=== PATIENT | male | born 1995 | race Caucasian/White ===

== ENCOUNTER 2018-02-04 08:59 | Emergency (ER) | payer SELFPAY ==
[2018-02-04 09:07] VITALS: BP 119/69; PULSE 81; RESP 18; TEMP 98.3
--- NOTE | 2018-02-04 09:27 | ED ---
Upper Extremity HPI - General Chief Complaint: Extremity Injury, Upper Stated Complaint: Hand injury Time Seen by Provider: 02/04/18 09:19 Source: patient, RN notes reviewed, old records reviewed Mode of arrival: ambulatory Limitations: no limitations - History of Present Illness Initial Comments: 22-year-old male with right hand pain after punching a door yesterday. Patient states he is an argument fell onto the door of a person. Patient states that he is right-handed. Reports that he may fracture this hand in the past. Denies any peripheral paresthesias. Does report some range of motion of the fingers. Denies any wrist pain or elbow pain. Patient denies any recent fever , chills, shortness of breath, chest pain, back pain, abdominal pain, nausea vomiting, numbness or tingling, dysuria or hematuria, constipation or diarrhea, headaches or visual changes, or any other current symptoms - Related Data Previous Rx's Medication Instructions Recorded Ibuprofen 600 mg PO TID #20 tablet 02/04/18 Allergies Allergy/AdvReac Type Severity Reaction Status Date / Time [place] Allergy Unknown Uncoded 02/04/18 09:12 Review of Systems ROS Statement: Those systems with pertinent positive or pertinent negative responses have been documented in the HPI. ROS Other: All systems not noted in ROS Statement are negative. Past Medical History Additional Past Medical History / Comment(s): chronic nausea, insomnia, back pain, turrets History of Any Multi-Drug Resistant Organisms: None Reported Past Surgical History: No Surgical Hx Reported Past Psychological History: ADD/ADHD, Anxiety Smoking Status: Current every day smoker Past Alcohol Use History: None Reported Past Drug Use History: Marijuana General Exam - General Exam Comments Initial Comments: Well-appearing 22-year-old. Alert and oriented. No distress. Limitations: no limitations General appearance: alert, in no apparent distress Head exam: Present: atraumatic, normocephalic, normal inspection Eye exam: Present: normal appearance, PERRL, EOMI. Absent: scleral icterus, conjunctival injection, periorbital swelling ENT exam: Present: normal exam, mucous membranes moist Respiratory exam: Present: normal lung sounds bilaterally. Absent: respiratory distress, wheezes, rales, rhonchi, stridor Cardiovascular Exam: Present: regular rate, normal rhythm, normal heart sounds. Absent: systolic murmur, diastolic murmur, rubs, gallop, clicks Right Upper Arm exam: Present: normal inspection, full ROM Elbow exam: Present: normal inspection, full ROM Forearm Wrist exam: Present: normal inspection, full ROM Hand Wrist exam: Present: tenderness, swelling (Tenderness and swelling over the fourth and fifth metacarpals.). Absent: normal inspection Neuro motor exam: Present: wrist extension intact, thumb opposition intact, thumb IP flexion intact, thumb adduction intact, fingers 2-5 abduction intact Vascular: Present: normal capillary refill Back exam: Present: normal inspection Course Vital Signs 02/04/18 09:05 Temperature 98.3 F Pulse Rate 81 Respiratory 18 Rate Blood Pressure 119/69 O2 Sat by Pulse 99 Oximetry Medical Decision Making - Medical Decision Making 22-year-old male presents emergency Department chief complaint of right hand pain after punching a door. Patient has tenderness and swelling over the third fourth and fifth metacarpals. Patient is neurovascular intact. Does have some range of motion of the fingers. Patient's x-rays reviewed and shows no evidence of fracture. At this time we'll put the Patient in Marquez wrap and discuss and temperature medicine and ice. Discussed return parameters. Patient understands treatment plan will comply. Return parameters were discussed. Will follow-up with compensation/benefits specialist. - Radiology Data Radiology results: report reviewed No fracture dislocation or symptoms persist follow-up in 7-10 days. Disposition Clinical Impression: Contusion of right hand Disposition: HOME SELF-CARE Condition: Good Instructions: Hand Sprain (ED) Additional Instructions: Patient denies follow-up with primary care provider and compensation/benefits specialist if symptoms continue persist. With Marquez wrap. Take Motrin child for pain. Ice the area as much as possible. Prescriptions: Ibuprofen 600 mg PO TID #20 tablet Is patient prescribed a controlled substance at d/c from ED?: No When asked, does pt state using other controlled substances?: No If prescribed controlled substance>3 days was MAPS reviewed?: No If opioid is for acute pain is fill amount 7 days or less?: No If Rx opioid, was Start Talking consent form obtained?: No Referrals: None,Stated [Primary Care Provider] - 1-2 days Nathanael Abreu DO [Doctor of Osteopathic Medicine] - 1-2 days Time of Disposition: 10:01
--- NOTE | 2018-02-04 09:51 | XR ---
EXAMINATION TYPE: XR hand complete RT DATE OF EXAM: 02/04/2018 COMPARISON: NONE HISTORY: Pain TECHNIQUE: Three views are submitted. FINDINGS: The osseous structures are intact. The joint spaces are preserved and there is no acute fracture or dislocation. IMPRESSION: 1. No definite acute fracture or dislocation if symptoms persist, follow-up study in 7 to 10 days wo uld be suggested
== END 2018-02-04 10:12 | disposition home or self-care (01) ==
LOC: EC 08:59
DX: S60.221A Contusion of right hand, initial encounter (principal); F17.200 Nicotine dependence, unspecified, uncomplicated; Z91.09 Other allergy status, other than to drugs and biological substances; W22.8XXA Striking against or struck by other objects, initial encounter; Y93.89 Activity, other specified
CPT/HCPCS: 99284

== ENCOUNTER 2018-06-22 14:15 | Emergency (ER) | payer OTHER ==
[2018-06-22 14:45] VITALS: RESP 18; TEMP 98.6
[2018-06-22] MEDS ORDERED: KETOROLAC 30 MG/ML 1 ML VIAL IVP STA (15:05)
[2018-06-22] MEDS ORDERED: SODIUM CHLORIDE 0.9% 1,000 ML IV STA ×2 (15:05)
[2018-06-22] MEDS ORDERED: ONDANSETRON 4 MG/2 ML VIAL IVP STA (15:05)
--- NOTE | 2018-06-22 15:06 | ED ---
Nausea/Vomiting/Diarrhea HPI <Dakota Ochoa - Last Filed: 06/22/18 18:35> - General Source: patient, RN notes reviewed, old records reviewed Mode of arrival: ambulatory Limitations: no limitations <Shayy David - Last Filed: 06/23/18 07:44> - General Chief complaint: Nausea/Vomiting/Diarrhea Stated complaint: N V D Time Seen by Provider: 06/22/18 14:51 - History of Present Illness Initial comments: Patient is a 23-year-old male presents raise her in today with episodes of dry heaving, complaining of diarrhea for the past day. Patient presents is had some intermittent fevers for the past 3 days. He states it is not any anything today. Patient states she's had no chest pain or shortness of breath. He denies any change in urination. Family history of Crohn's disease and colitis. Patient states that the pain is in the mid abdomen and the left and right upper quadrants. (Shayy David) - Related Data Previous Rx's Medication Instructions Recorded Ondansetron Odt [Zofran Odt] 4 mg PO Q8HR PRN #12 tab 06/22/18 Allergies Allergy/AdvReac Type Severity Reaction Status Date / Time [place] Allergy Swelling Uncoded 06/22/18 15:26 Review of Systems ROS Other: All systems not noted in ROS Statement are negative. <Dakota Ochoa - Last Filed: 06/22/18 18:35> ROS Other: All systems not noted in ROS Statement are negative. <Shayy David - Last Filed: 06/23/18 07:44> ROS Statement: Those systems with pertinent positive or pertinent negative responses have been documented in the HPI. Past Medical History Past Medical History: Seizure Disorder Additional Past Medical History / Comment(s): chronic nausea, insomnia, back pain, turrets History of Any Multi-Drug Resistant Organisms: None Reported Past Surgical History: No Surgical Hx Reported Past Psychological History: ADD/ADHD, Anxiety, Bipolar Smoking Status: Current every day smoker Past Alcohol Use History: None Reported Past Drug Use History: Marijuana <Shayy David - Last Filed: 06/23/18 07:44> General Exam <Dakota Ochoa - Last Filed: 06/22/18 18:35> Limitations: no limitations General appearance: alert, in no apparent distress Head exam: Present: atraumatic, normocephalic, normal inspection Eye exam: Present: normal appearance ENT exam: Present: normal exam, mucous membranes moist Neck exam: Present: normal inspection. Absent: tenderness, meningismus, lymphadenopathy Respiratory exam: Present: normal lung sounds bilaterally. Absent: respiratory distress, wheezes, rales, rhonchi, stridor Cardiovascular Exam: Present: regular rate, normal rhythm, normal heart sounds. Absent: systolic murmur, diastolic murmur, rubs, gallop, clicks GI/Abdominal exam: Present: soft, tenderness (minimal LLQ and LUQ tenderness), normal bowel sounds. Absent: distended, guarding, rebound, rigid Extremities exam: Present: normal inspection, full ROM, normal capillary refill. Absent: tenderness, pedal edema, joint swelling, calf tenderness Back exam: Present: normal inspection Neurological exam: Present: alert, oriented X3, CN II-XII intact Psychiatric exam: Present: normal affect, normal mood <Shayy David - Last Filed: 06/23/18 07:44> - General Exam Comments Initial Comments: 23-year-old male. Alert and oriented. Patient appears in no significant distress. (Shayy David) Vital Signs 06/22/18 06/22/18 06/22/18 14:42 16:00 17:00 Temperature 98.6 F Pulse Rate 52 L Respiratory 18 Rate Blood Pressure 117/71 114/73 101/64 O2 Sat by Pulse 99 98 97 Oximetry 06/22/18 06/22/18 18:00 18:30 Temperature Pulse Rate 68 Respiratory 18 Rate Blood Pressure 111/66 112/64 O2 Sat by Pulse 99 Oximetry Medical Decision Making - Lab Data Result diagrams: 06/22/18 15:40 06/22/18 15:40 <Dakota Ochoa - Last Filed: 06/22/18 18:35> - Lab Data Result diagrams: 06/22/18 15:40 06/22/18 15:40 - Radiology Data Radiology results: report reviewed <Shayy David - Last Filed: 06/23/18 07:44> - Medical Decision Making Case discussed with surgery on-call Dr. Kumar, regarding CT evidence of jejunal intussusception. This is a normal finding and is safe for discharge and outpatient follow-up. I did reevaluate the patient, abdomen soft nontender nondistended, he is well-appearing, hungry and eager for discharge. (Dakota Ochoa) 23-year-old male presented to the emergency department today with nausea vomiting abdominal pain is Wells and diarrhea episodes for the past few days. He also reports subjective intermittent fever. Patient had IV fluids and the zofran, toradol. Mild leukocytosis noted. Patient's abdomen is soft, no rebound or guarding. With leukocytosis family history of Chrons colitis, I did do a CT abdomen and pelvis with contrast.. CT didn't show evidence of jejunal intussception. I discuss the case with Dr. Ochoa and him discussed the case with Dr. Kumar. Say that it's normal finding, and that hte patient in the safe for discharge. He can follow up with a Dr. Kumar. Will discharge the patient was Zofran he is hungry and ready to go home. (Shayy David) - Lab Data Lab Results 06/22/18 06/22/18 06/22/18 Range/Units 15:40 15:40 15:40 WBC 14.7 H (3.8-10.6) k/uL RBC 5.29 (4.30-5.90) m/uL Hgb 16.0 (13.0-17.5) gm/dL Hct 47.9 (39.0-53.0) % MCV 90.6 (80.0-100.0) fL MCH 30.2 (25.0-35.0) pg MCHC 33.4 (31.0-37.0) g/dL RDW 12.6 (11.5-15.5) % Plt Count 275 (150-450) k/uL Neutrophils % 82 % Lymphocytes % 9 % Monocytes % 7 % Eosinophils % 1 % Basophils % 0 % Neutrophils # 12.1 H (1.3-7.7) k/uL Lymphocytes # 1.3 (1.0-4.8) k/uL Monocytes # 1.1 H (0-1.0) k/uL Eosinophils # 0.1 (0-0.7) k/uL Basophils # 0.0 (0-0.2) k/uL PT 11.0 (9.0-12.0) sec INR 1.1 (<1.2) APTT 25.1 (22.0-30.0) sec Sodium 141 (137-145) mmol/L Potassium 4.1 (3.5-5.1) mmol/L Chloride 106 (98-107) mmol/L Carbon Dioxide 25 (22-30) mmol/L Anion Gap 10 mmol/L BUN 17 (9-20) mg/dL Creatinine 0.88 (0.66-1.25) mg/dL Est GFR (CKD-EPI)AfAm >90 (>60 ml/min/1.73 sqM) Est GFR (CKD-EPI)NonAf >90 (>60 ml/min/1.73 sqM) Glucose 98 (74-99) mg/dL Calcium 9.9 (8.4-10.2) mg/dL Total Bilirubin 1.0 (0.2-1.3) mg/dL AST 16 L (17-59) U/L ALT 18 L (21-72) U/L Alkaline Phosphatase 57 (38-126) U/L Total Protein 7.7 (6.3-8.2) g/dL Albumin 4.5 (3.5-5.0) g/dL Amylase 49 (30-110) U/L Lipase 68 (23-300) U/L Urine Color Urine Appearance (Clear) Urine pH (5.0-8.0) Ur Specific [place] (1.001-1.035) Urine Protein (Negative) Urine Glucose (UA) (Negative) Urine Ketones (Negative) Urine Blood (Negative) Urine Nitrite (Negative) Urine Bilirubin (Negative) Urine Urobilinogen (<2.0) mg/dL Ur Leukocyte Esterase (Negative) 06/22/18 Range/Units 15:40 WBC (3.8-10.6) k/uL RBC (4.30-5.90) m/uL Hgb (13.0-17.5) gm/dL Hct (39.0-53.0) % MCV (80.0-100.0) fL MCH (25.0-35.0) pg MCHC (31.0-37.0) g/dL RDW (11.5-15.5) % Plt Count (150-450) k/uL Neutrophils % % Lymphocytes % % Monocytes % % Eosinophils % % Basophils % % Neutrophils # (1.3-7.7) k/uL Lymphocytes # (1.0-4.8) k/uL Monocytes # (0-1.0) k/uL Eosinophils # (0-0.7) k/uL Basophils # (0-0.2) k/uL PT (9.0-12.0) sec INR (<1.2) APTT (22.0-30.0) sec Sodium (137-145) mmol/L Potassium (3.5-5.1) mmol/L Chloride (98-107) mmol/L Carbon Dioxide (22-30) mmol/L Anion Gap mmol/L BUN (9-20) mg/dL Creatinine (0.66-1.25) mg/dL Est GFR (CKD-EPI)AfAm (>60 ml/min/1.73 sqM) Est GFR (CKD-EPI)NonAf (>60 ml/min/1.73 sqM) Glucose (74-99) mg/dL Calcium (8.4-10.2) mg/dL Total Bilirubin (0.2-1.3) mg/dL AST (17-59) U/L ALT (21-72) U/L Alkaline Phosphatase (38-126) U/L Total Protein (6.3-8.2) g/dL Albumin (3.5-5.0) g/dL Amylase (30-110) U/L Lipase (23-300) U/L Urine Color Yellow Urine Appearance Clear (Clear) Urine pH 6.0 (5.0-8.0) Ur Specific [place] 1.029 (1.001-1.035) Urine Protein Trace H (Negative) Urine Glucose (UA) Negative (Negative) Urine Ketones Trace H (Negative) Urine Blood Negative (Negative) Urine Nitrite Negative (Negative) Urine Bilirubin Negative (Negative) Urine Urobilinogen <2.0 (<2.0) mg/dL Ur Leukocyte Esterase Negative (Negative) - Radiology Data Evidence of a left upper quadrant jejunal intussusception. No intestinal masses noted. Follow-up as recommended. Length of the intussusception is 4 cm. (Shayy David) Disposition <Dakota Ochoa - Last Filed: 06/22/18 18:35> Is patient prescribed a controlled substance at d/c from ED?: No Time of Disposition: 18:29 <Shayy David - Last Filed: 06/23/18 07:44> Clinical Impression: Nausea & vomiting, Diarrhea, Intussusception of jejunum Disposition: HOME SELF-CARE Condition: Good Instructions: Gastroenteritis (ED) Additional Instructions: Patient is advised to rest, remain hydrated. Take nausea medicine as prescribed. Follow-up with PCP and surgeon. Clear liquid diet for the next 1- 2 days. Prescriptions: Ondansetron Odt [Zofran Odt] 4 mg PO Q8HR PRN #12 tab PRN Reason: Nausea Referrals: None,Stated [Primary Care Provider] - 1-2 days Mani Kumar MD [STAFF PHYSICIAN] - 1-2 days Melani Lerma MD [REFERRING] - 1-2 days
--- NOTE | 2018-06-22 16:05 | XR ---
EXAMINATION TYPE: XR KUB DATE OF EXAM: 06/22/2018 COMPARISON: NONE HISTORY: Diarrhea and abdominal pain TECHNIQUE: 2 views upright FINDINGS: There is no sign of intestinal obstruction or pneumoperitoneum. Fecal pattern is normal. Cleo ng bases are clear. There are no pathologic calcifications. IMPRESSION: Nonacute abdomen.
--- NOTE | 2018-06-22 16:06 | XR ---
EXAMINATION TYPE: XR chest 2V DATE OF EXAM: 06/22/2018 COMPARISON: NONE HISTORY: Chest pain TECHNIQUE: Frontal and lateral views of the chest are obtained. FINDINGS: Heart and mediastinum are normal. Lungs are clear. Diaphragm is normal. Bony thorax appear s normal. IMPRESSION: Normal chest
[2018-06-22 16:07] LABS: Basophils % (A) 0 %; Eosinophils # (A) 0.1 k/uL (0-0.7); Eosinophils % (A) 1 %; HCT 47.9 % (39.0-53.0); Lymphocytes # (A) 1.3 k/uL (1.0-4.8); Lymphocytes % (A) 9 %; MCH 30.2 pg (25.0-35.0); MCHC 33.4 g/dL (31.0-37.0); MCV 90.6 fL (80.0-100.0); Mean Platelet Volume 6.8; Monocytes # (A) 1.1 k/uL (0-1.0); Monocytes % (A) 7 %; Neutrophils # (A) 12.1 k/uL (1.3-7.7); Neutrophils % (A) 82 %; Platelet Count 275 k/uL (150-450); RBC 5.29 m/uL (4.30-5.90); RDW 12.6 % (11.5-15.5); WBC 14.7 k/uL (3.8-10.6)
[2018-06-22 16:09] LABS: Appearance,Urine Clear (Clear); Bilirubin,Urine Negative (Negative); Blood,Urine Negative (Negative); Color,Urine Yellow; Glucose,Urine (UA) Negative (Negative); Ketones,Urine Trace (Negative); Leukocyte Esterase,Urine Negative (Negative); Nitrite,Urine Negative (Negative); Protein,Urine Trace (Negative); Specific Gravity,Urine 1.029 (1.001-1.035); Urobilinogen,Urine <2.0 mg/dL (<2.0)
[2018-06-22 16:15] LABS: Albumin 4.5 g/dL (3.5-5.0); Amylase 49 U/L (30-110); Chloride 106 mmol/L (98-107); Glucose 98 mg/dL (74-99); INR 1.1 (<1.2); Partial Thromboplastin Time 25.1 sec (22.0-30.0); Potassium 4.1 mmol/L (3.5-5.1); Sodium 141 mmol/L (137-145); Total Protein 7.7 g/dL (6.3-8.2)
[2018-06-22 16:16] LABS: ALT 18 U/L (21-72); AST 16 U/L (17-59); Alkaline Phosphatase 57 U/L (38-126); Anion Gap 10 mmol/L; Blood Urea Nitrogen 17 mg/dL (9-20); Calcium 9.9 mg/dL (8.4-10.2); Carbon Dioxide 25 mmol/L (22-30); Lipase 68 U/L (23-300)
--- NOTE | 2018-06-22 17:55 | CT ---
EXAMINATION TYPE: CT abdomen pelvis w con DATE OF EXAM: 06/22/2018 COMPARISON: None HISTORY: abdominal pain, nausea, vomiting CT DLP: 579.5 mGycm Automated exposure control for dose reduction was used. TECHNIQUE: Helical acquisition of images was performed from the lung bases through the pelvis. CONTRAST: Performed without Oral Contrast and with IV Contrast, patient injected with 100 mL of Isovue 300. FINDINGS: Lung bases are clear. There is no pleural effusion. Heart size is normal. There is no pericardial eff usion. Stomach appears normal. Liver spleen pancreas gallbladder appear normal. Bile ducts are not di lated. There is no adrenal mass. There is normal contrast opacification of the kidneys. There is no hydronep hrosis. There is no retroperitoneal adenopathy. Ureters are not dilated. Bladder distends smoothly. T here is no inguinal hernia. There is no free fluid in the pelvis. There is no evidence of free air. There is no inguinal hernia or adenopathy. The appendix is partly filled with air and appears normal. There appears to be a localized intussusception within the jejunum in the left upper quadrant. This i s best seen on axial image 25-27. There is no evidence of a bowel obstruction however. The sagittal i mage 82 shows the length of the intussusception is 4 cm. IMPRESSION: THERE IS EVIDENCE OF LEFT UPPER QUADRANT JEJUNAL INTUSSUSCEPTION. No intestinal mass seen. Follow-up is recommended.
[2018-06-22 18:56] VITALS: BP 112/64; PULSE 68
== END 2018-06-22 18:56 | disposition home or self-care (01) ==
LOC: EC 14:15
DX: K56.1 Intussusception (principal); D72.829 Elevated white blood cell count, unspecified; F17.200 Nicotine dependence, unspecified, uncomplicated; Z83.79 Family history of other diseases of the digestive system; Z91.038 Other insect allergy status
CPT/HCPCS: 99285; 96374; 96375; 96361 ×3; 36415; 80053; 82150; 83690; 85025; 85610; 85730; 81003; 71046; 74018; 74177; J2405; J1885; Q9967

== ENCOUNTER 2018-10-28 07:18 | Emergency (ER) | payer OTHER ==
[2018-10-28 07:30] VITALS: BP 115/68; PULSE 76; RESP 18; TEMP 97.9
[2018-10-28] MEDS ORDERED: KETOROLAC 60 MG/2 ML VIAL IM STA (07:50)
--- NOTE | 2018-10-28 08:05 | ED ---
General Adult HPI - General Chief complaint: Upper Respiratory Infection Stated complaint: SOB Time Seen by Provider: 10/28/18 07:25 Source: patient, RN notes reviewed Mode of arrival: ambulatory Limitations: no limitations - History of Present Illness Initial comments: This is a 23-year-old male presents emergency Department states that he woke up this morning had a huge on and then had pain on the right lateral aspect of his ribs. Patient states now it hurts when he moves or takes a deep breath. Patient states he has a cough but he was has a cough patient smokes cigarettes a lot of marijuana. Patient denies any sputum production. Patient denies any fever chills per patient denies being short of breath per patient denies any anterior chest pain. Patient denies abdominal pain. Patient denies any other symptoms at this time. - Related Data Previous Rx's Medication Instructions Recorded Ondansetron Odt [Zofran Odt] 4 mg PO Q8HR PRN #12 tab 06/22/18 Ibuprofen [Motrin] 600 mg PO Q6HR PRN #20 tab 10/28/18 Allergies Allergy/AdvReac Type Severity Reaction Status Date / Time [place] Allergy Swelling Uncoded 10/28/18 07:29 Review of Systems ROS Statement: Those systems with pertinent positive or pertinent negative responses have been documented in the HPI. ROS Other: All systems not noted in ROS Statement are negative. Past Medical History Past Medical History: Seizure Disorder Additional Past Medical History / Comment(s): chronic nausea, insomnia, back pain, turrets History of Any Multi-Drug Resistant Organisms: None Reported Past Surgical History: No Surgical Hx Reported Past Psychological History: ADD/ADHD, Anxiety, Bipolar Smoking Status: Current every day smoker Past Alcohol Use History: None Reported Past Drug Use History: Marijuana General Exam - General Exam Comments Initial Comments: GENERAL: Patient is well-developed and well-nourished. Patient is nontoxic and well- hydrated and is in mild distress. ENT: Neck is soft and supple. No significant lymphadenopathy is noted. Oropharynx is clear. Moist mucous membranes. Neck has full range of motion without eliciting any pain. EYES: The sclera were anicteric and conjunctiva were pink and moist. Extraocular movements were intact and pupils were equal round and reactive to light. Eyelids were unremarkable. PULMONARY: Unlabored respirations. Good breath sounds bilaterally. No audible rales rhonchi or wheezing was noted. CARDIOVASCULAR: Patient is a regular rate and rhythm. Patient has right lateral rib pain. Ribs 4 and 5.. ABDOMEN: Soft and nontender with normal bowel sounds. No palpable organomegaly was noted. There is no palpable pulsatile mass. SKIN: Skin is clear with no lesions or rashes and otherwise unremarkable. NEUROLOGIC: Patient is alert and oriented x3. Cranial nerves II through XII are grossly intact. Motor and sensory are also intact. Normal speech, volume and content. Symmetrical smile. MUSCULOSKELETAL: Normal extremities with adequate strength and full range of motion. No lower extremity swelling or edema. No calf tenderness. LYMPHATICS: No significant lymphadenopathy is noted PSYCHIATRIC: Normal psychiatric evaluation. Limitations: no limitations Course Vital Signs 10/28/18 07:26 Temperature 97.9 F Pulse Rate 76 Respiratory 18 Rate Blood Pressure 115/68 O2 Sat by Pulse 99 Oximetry Medical Decision Making - Medical Decision Making Chest x-ray shows no acute abnormality Toradol helped the patient's pain Disposition Clinical Impression: Intercostal muscle strain Disposition: HOME SELF-CARE Condition: Good Prescriptions: Ibuprofen [Motrin] 600 mg PO Q6HR PRN #20 tab PRN Reason: For pain Is patient prescribed a controlled substance at d/c from ED?: No Referrals: None,Stated [Primary Care Provider] - 1-2 days Time of Disposition: 08:33
--- NOTE | 2018-10-28 08:10 | XR ---
EXAMINATION TYPE: XR chest 2V DATE OF EXAM: 10/28/2018 COMPARISON: Prior chest x-ray 06/22/2018 HISTORY: Shortness of breath and pain TECHNIQUE: Frontal and lateral views of the chest are obtained. FINDINGS: There is no focal air space opacity, pleural effusion, or pneumothorax seen. The cardiac silhouette size is within normal limits. The osseous structures are intact. IMPRESSION: No acute cardiopulmonary process.
== END 2018-10-28 08:39 | disposition home or self-care (01) ==
LOC: EC 07:18
DX: S29.011A Strain of muscle and tendon of front wall of thorax, initial encounter (principal); R05 Cough; F17.210 Nicotine dependence, cigarettes, uncomplicated; Z91.038 Other insect allergy status; X58.XXXA Exposure to other specified factors, initial encounter
CPT/HCPCS: 71046; 99284; 96372; J1885

== ENCOUNTER 2018-11-10 00:31 | Emergency (ER) | payer OTHER ==
[2018-11-10 00:46] VITALS: BP 116/76; PULSE 84; RESP 18; TEMP 98.5
== END 2018-11-10 01:29 ==
LOC: EC 00:31
DX: K08.89 Other specified disorders of teeth and supporting structures (principal); Z53.21 Procedure and treatment not carried out due to patient leaving prior to being seen by health care provider
CPT/HCPCS: 99499

== ENCOUNTER 2019-02-14 13:32 | Emergency (ER) | payer OTHER ==
[2019-02-14 13:59] VITALS: BP 105/56; PULSE 78; RESP 16; TEMP 97.9
[2019-02-14] MEDS ORDERED: IBUPROFEN 800 MG TAB PO STA (15:37)
--- NOTE | 2019-02-14 16:13 | XR ---
EXAMINATION TYPE: XR knee complete RT DATE OF EXAM: 02/14/2019 COMPARISON: NONE HISTORY: Knee injury and pain TECHNIQUE: 3 views FINDINGS: There is knee joint effusion. I see no fracture nor dislocation. Joint spaces are normal. IMPRESSION: Joint effusion. No fracture seen.
--- NOTE | 2019-02-14 17:04 | ED ---
General Adult HPI - General Chief complaint: Extremity Injury, Lower Stated complaint: leg pain Time Seen by Provider: 02/14/19 15:23 Source: patient Mode of arrival: ambulatory Limitations: no limitations - History of Present Illness Initial comments: Patient is a 23-year-old male who presents with a chief complaint of right knee pain. He states it is been going on for about 2 days. 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 He cannot identify any injury or inciting incident. There are no alleviating factors though he states his pain is aggravated with hyperextension or flexion of the knee. He has not tried taking any medications for this issue. He has no other complaints today. - Related Data Previous Rx's Medication Instructions Recorded Ibuprofen [Motrin] 800 mg PO TID #30 tab 02/14/19 Allergies Allergy/AdvReac Type Severity Reaction Status Date / Time MOSQUITO Allergy Swelling Uncoded 02/14/19 13:59 Review of Systems ROS Statement: Those systems with pertinent positive or pertinent negative responses have been documented in the HPI. ROS Other: All systems not noted in ROS Statement are negative. Musculoskeletal: Reports: joint swelling Past Medical History Past Medical History: Seizure Disorder Additional Past Medical History / Comment(s): chronic nausea, insomnia, back pain, turrets History of Any Multi-Drug Resistant Organisms: None Reported Past Surgical History: No Surgical Hx Reported Past Psychological History: ADD/ADHD, Anxiety, Bipolar Smoking Status: Current every day smoker Past Alcohol Use History: None Reported Past Drug Use History: Marijuana General Exam Limitations: no limitations General appearance: alert, in no apparent distress Head exam: Present: atraumatic, normocephalic Eye exam: Present: normal appearance ENT exam: Present: normal exam Neck exam: Present: normal inspection Respiratory exam: Absent: respiratory distress Cardiovascular Exam: Present: regular rate, normal rhythm GI/Abdominal exam: Present: soft. Absent: distended, tenderness Rectal exam: Present: deferred Extremities exam: Present: joint swelling (right knee mild joint effusion) Back exam: Present: normal inspection Neurological exam: Present: alert, oriented X3 Psychiatric exam: Present: normal affect, normal mood Skin exam: Present: warm, dry, intact Course Vital Signs 02/14/19 13:57 Temperature 97.9 F Pulse Rate 78 Respiratory 16 Rate Blood Pressure 105/56 O2 Sat by Pulse 97 Oximetry Medical Decision Making - Medical Decision Making Patient presents with chief complaint of right knee pain. On initial evaluation, vitals are stable, patient is in no acute distress. Given history and physical examination, I believe that the patient has a prepatellar bursitis. Detrusor unremarkable and did not show any evidence of fracture or effusion. At this time, patient stable for discharge with prescriptions for Motrin. He was given a work note states he can return to light duty and gradually increase as tolerated. He is instructed to follow-up with primary care in 1-2 days, return to the ED if symptoms worsen or change. Disposition Clinical Impression: Prepatellar bursitis Disposition: HOME SELF-CARE Condition: Good Instructions (If sedation given, give patient instructions): Knee Pain (ED) Prescriptions: Ibuprofen [Motrin] 800 mg PO TID #30 tab Is patient prescribed a controlled substance at d/c from ED?: No Referrals: None,Stated [Primary Care Provider] - 1-2 days Mandi Gilbert MD [STAFF PHYSICIAN] - 1-2 days
== END 2019-02-14 17:53 | disposition home or self-care (01) ==
LOC: EC 13:32
DX: M70.41 Prepatellar bursitis, right knee (principal); F17.200 Nicotine dependence, unspecified, uncomplicated; Z91.038 Other insect allergy status
CPT/HCPCS: 99283

== ENCOUNTER 2019-07-20 00:56 | Emergency (ER) | payer OTHER ==
[2019-07-20 01:05] VITALS: BP 142/75; PULSE 102; RESP 18; TEMP 98.3
--- NOTE | 2019-07-20 01:08 | ED ---
ENT HPI - General Chief complaint: Dental/Oral Stated complaint: Dental Pain Time Seen by Provider: 07/20/19 01:08 Source: patient Mode of arrival: ambulatory Limitations: no limitations - History of Present Illness Initial comments: Andrea is a 24-year-old male with a history of very poor dentition and multiple dental caries. Patient is presenting to the ER today for evaluation of pain in the left upper gums and concern for abscess. Patient reports that he has multiple dental caries in this area he's experiencing some worsening pain over the past 2-3 days and today noticed a little bit of swelling became concerned he may have a dental abscess which she has experienced in the past. Patient states that he knows he needs to be on antibiotics to have deep dental work so he decided come to the ER for evaluation antibiotics prior to calling the dentist tomorrow to establish follow-up. - Related Data Previous Rx's Medication Instructions Recorded Ibuprofen [Motrin] 800 mg PO TID #30 tab 02/14/19 Ibuprofen [Motrin] 600 mg PO Q6HR #30 tab 07/20/19 Penicillin V Potassium [Pen Vee K] 500 mg PO QID 7 Days #28 tablet 07/20/19 Allergies Allergy/AdvReac Type Severity Reaction Status Date / Time MOSQUITO Allergy Swelling Uncoded 07/20/19 01:05 Review of Systems ROS Statement: Those systems with pertinent positive or pertinent negative responses have been documented in the HPI. ROS Other: All systems not noted in ROS Statement are negative. Past Medical History Past Medical History: Seizure Disorder Additional Past Medical History / Comment(s): chronic nausea, insomnia, back pain, turrets History of Any Multi-Drug Resistant Organisms: None Reported Past Surgical History: No Surgical Hx Reported Past Psychological History: ADD/ADHD, Anxiety, Bipolar, Depression Smoking Status: Current every day smoker Past Alcohol Use History: None Reported Past Drug Use History: Marijuana General Exam - General Exam Comments Initial Comments: Physical Exam GENERAL: Patient is well-developed and well-nourished. Patient is nontoxic and well-hydrated and is in no distress. HENT: Normocephalic, Atraumatic. Poor dentition with multiple dental caries Erythematous gums, no drainable abscess EYES: PERRL, EOMI PULMONARY: Unlabored respirations. CARDIOVASCULAR: RRR Warm and well perfused extremities ABDOMEN: Non-distended SKIN: No rashes or bruising : Deferred NEUROLOGIC: Alert and oriented Normal speech Normal gait MUSCULOSKELETAL: Moving all extremities with no apparent injury PSYCHIATRIC: No SI/HI Limitations: no limitations Course Vital Signs 07/20/19 01:01 Temperature 98.3 F Pulse Rate 102 H Respiratory 18 Rate Blood Pressure 142/75 O2 Sat by Pulse 97 Oximetry Medical Decision Making - Medical Decision Making Patient with poor dentition history of dental infections presenting with dental pain, erythematous gums. Will be started on anti-inflammatories and antibiotics. No signs of significant infection. Advised to follow up with sunitha ro. Return parameters were discussed, patient discharged home in stable condition Disposition Clinical Impression: Dental abscess Disposition: HOME SELF-CARE Condition: Stable Instructions (If sedation given, give patient instructions): Toothache (ED) Additional Instructions: Please follow up with the [facility] dental clinic. [facility] [place] [address]. Phone number for new patients or [phone] for existing patients. [facility]. Must pay for x-rays then services are free. Call for an appoitnment. Prescriptions: Ibuprofen [Motrin] 600 mg PO Q6HR #30 tab Penicillin V Potassium [Pen Vee K] 500 mg PO QID 7 Days #28 tablet Is patient prescribed a controlled substance at d/c from ED?: No Referrals: None,Stated [Primary Care Provider] - 1-2 days
[2019-07-20] MEDS ORDERED: PENICILLIN V POTASSIUM 250 MG TAB PO STA (01:42)
== END 2019-07-20 01:55 | disposition home or self-care (01) ==
LOC: EC 00:56
DX: K04.7 Periapical abscess without sinus (principal); K02.9 Dental caries, unspecified; F17.200 Nicotine dependence, unspecified, uncomplicated; Z91.09 Other allergy status, other than to drugs and biological substances
CPT/HCPCS: 99282

== ENCOUNTER 2020-09-14 18:22 | Emergency (ER) | payer OTHER ==
[2020-09-14 18:40] VITALS: RESP 18
[2020-09-14 19:56] LABS: Appearance,Urine Clear (Clear); Bilirubin,Urine Negative (Negative); Blood,Urine Negative (Negative); Color,Urine Colorless; Glucose,Urine (UA) Negative (Negative); Ketones,Urine Negative (Negative); Leukocyte Esterase,Urine Negative (Negative); Nitrite,Urine Negative (Negative); Protein,Urine Negative (Negative); Specific Gravity,Urine 1.002 (1.001-1.035); Urobilinogen,Urine <2.0 mg/dL (<2.0)
[2020-09-14 20:35] VITALS: BP 118/71; PULSE 64; TEMP 98.4
--- NOTE | 2020-09-14 21:06 | US ---
EXAMINATION TYPE: US groin RT DATE OF EXAM: 09/14/2020 COMPARISON: NONE CLINICAL HISTORY: hernia . Possible hernia per order. Patient feels palpable lump and pain in right g roin. Scanned right groin-slightly midline at patient's area of concern. There appears to be anterior movement with peristalsis when patient performs the valsalva maneuver. P ossible defect seen measuring 4.0 cm in transverse imaging. Hypoechoic area with hyperechoic center and vacular hilum seen within the right groin measuring 1.2 x 0.8 x 0.4 cm. IMPRESSION: There is evidence for a right side inguinal or scrotal type hernia produced with Valsalv a.
--- NOTE | 2020-09-14 21:19 | ED ---
Abdominal Pain HPI - General Chief Complaint: Abdominal Pain Stated Complaint: poss hernia Time Seen by Provider: 09/14/20 19:28 Source: patient Mode of arrival: ambulatory Limitations: no limitations - History of Present Illness Initial Comments: Patient is a 25-year-old male presenting to the emergency Department with complaints of a right-sided hernia with an increase in pain. Patient states he's had this hernia for approximately 8 years. Patient states the last 2 days he's noticed an increase in discomfort. He denies any fevers, no chills. He denies any nausea or vomiting. He denies any abdominal surgeries. 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 He has not seen a surgeon or a doctor for this yet. Patient has no further complaints at this time. - Related Data Previous Rx's Medication Instructions Recorded Ibuprofen [Motrin] 800 mg PO TID #30 tab 02/14/19 Ibuprofen [Motrin] 600 mg PO Q6HR #30 tab 07/20/19 Penicillin V Potassium [Pen Vee K] 500 mg PO QID 7 Days #28 tablet 07/20/19 Allergies Allergy/AdvReac Type Severity Reaction Status Date / Time MOSQUITO Allergy Swelling Uncoded 09/14/20 18:40 Review of Systems ROS Statement: Those systems with pertinent positive or pertinent negative responses have been documented in the HPI. ROS Other: All systems not noted in ROS Statement are negative. Past Medical History Past Medical History: Seizure Disorder Additional Past Medical History / Comment(s): chronic nausea, insomnia, back pain, turrets History of Any Multi-Drug Resistant Organisms: None Reported Past Surgical History: No Surgical Hx Reported Past Psychological History: ADD/ADHD, Anxiety, Bipolar, Depression Smoking Status: Current every day smoker Past Alcohol Use History: None Reported Past Drug Use History: Marijuana General Exam - General Exam Comments Initial Comments: GENERAL: Patient is well-developed and well-nourished. Patient is nontoxic and in no acute distress. HEAD: Atraumatic, normocephalic. EYES: Pupils equal round and reactive to light, extraocular movements intact, sclera anicteric, conjunctiva are normal. Eyelids were unremarkable. ENT: TMs normal, nares patent, oropharynx clear without exudates. Moist mucous membranes. NECK: Normal range of motion, supple without lymphadenopathy or JVD. LUNGS: Unlabored respirations. Breath sounds clear to auscultation bilaterally and equal. No wheezes rales or rhonchi. HEART: Regular rate and rhythm without murmurs, rubs or gallops. ABDOMEN: Patient does have a reducible hernia present in the right inguinal space. There is no significant pain with palpation of this hernia. No other areas of abdominal tenderness. Normoactive bowel sounds. No guarding, no rebound. No masses appreciated. : Normal external exam. MUSCULOSKELETAL: Normal extremities with adequate strength and normal range of motion, no pitting or edema. No clubbing or cyanosis. NEUROLOGICAL: Patient is alert and oriented x 3. Motor and sensory are also intact. Cranial nerves II through XII grossly intact. Symmetrical smile. Normal speech, normal gait. PSYCH: Normal mood, normal affect. SKIN: Warm, Dry, normal turgor, no rashes or lesions noted. Limitations: no limitations Course Vital Signs 09/14/20 09/14/20 18:38 20:33 Temperature 98.0 F 98.4 F Pulse Rate 70 64 Respiratory 18 18 Rate Blood Pressure 120/65 118/71 O2 Sat by Pulse 99 98 Oximetry Medical Decision Making - Medical Decision Making Patient is a 25-year-old male here for a right inguinal hernia as an increase in pain over the past 2 days. He's had this hernia for years. Ultrasound reveals a right-sided inguinal or scrotal type hernia that is produced with a Valsalva maneuver. This hernia is reducible. He is not in any significant pain. Patient will follow up with surgeon as an outpatient. I did give him referral. He is stable for discharge and he is in agreement with this plan of care. Return parameters were discussed with the patient he verbalizes understanding. - Lab Data Lab Results 09/14/20 Range/Units 19:50 Urine Color Colorless Urine Appearance Clear (Clear) Urine pH 7.0 (5.0-8.0) Ur Specific Taft 1.002 (1.001-1.035) Urine Protein Negative (Negative) Urine Glucose (UA) Negative (Negative) Urine Ketones Negative (Negative) Urine Blood Negative (Negative) Urine Nitrite Negative (Negative) Urine Bilirubin Negative (Negative) Urine Urobilinogen <2.0 (<2.0) mg/dL Ur Leukocyte Esterase Negative (Negative) Disposition Clinical Impression: Right inguinal hernia Disposition: HOME SELF-CARE Condition: Stable Instructions (If sedation given, give patient instructions): Inguinal Hernia (ED) Additional Instructions: Please return to the Emergency Department if symptoms worsen or any other concerns. Please follow up with surgeon as discussed. Apply pressure to area when bearing down for a bowel movement, limit heavy lifting. Is patient prescribed a controlled substance at d/c from ED?: No Referrals: None,Stated [Primary Care Provider] - 1-2 days Farida Mejias MD [STAFF PHYSICIAN] - 1-2 days
== END 2020-09-14 21:40 | disposition home or self-care (01) ==
LOC: EC 18:22
DX: K40.90 Unilateral inguinal hernia, without obstruction or gangrene, not specified as recurrent (principal); F17.200 Nicotine dependence, unspecified, uncomplicated; Z91.09 Other allergy status, other than to drugs and biological substances
CPT/HCPCS: 81003; 99284

== ENCOUNTER 2020-10-13 07:38 | Day surgery (SDC) | payer OTHER ==
[2020-10-11 09:51] VITALS: BMI 26.5
--- NOTE | 2020-10-13 07:02 | P.GSHP ---
History of Present Illness H&P Date: 10/13/20 CHIEF COMPLAINT: Inguinal hernia, right. HISTORY OF PRESENT ILLNESS: The patient is a 25-year-old male who presents with a history of swelling and pain along the right groin. He has noted increased swelling including pain of the area. Now he presents for repair of his inguinal hernia. PAST MEDICAL HISTORY: Please see list. PAST SURGICAL HISTORY: Please see list. MEDICATIONS: Please see list. ALLERGIES: Please see list. SOCIAL HISTORY: Please see list. FAMILY HISTORY: No reports of Crohn disease or ulcerative colitis. REVIEW OF ORGAN SYSTEMS: CONSTITUTIONAL: No reports of fevers or chills. No reports of weight loss despite prior attempts. GI: Denies any blood in stools or constipation. PHYSICAL EXAM: VITAL SIGNS: Stable GENERAL: Well-developed pleasant in no acute distress. HEENT: No scleral icterus. Extraocular movements grossly intact. Moist buccal mucosa. NECK: Supple without lymphadenopathy. CHEST: Unlabored respirations. Equal bilateral excursions. CARDIOVASCULAR: Regular rate and rhythm. Distal 2+ pulses. ABDOMEN: Soft, nondistended. No peritoneal signs. Tenderness right lower quadrant MUSCULOSKELETAL: No clubbing, cyanosis, or edema. ASSESSMENT: 1. Inguinal hernia, right initial and symptomatic. PLAN: 1. Recommend proceeding robotic inguinal repair with mesh with possible bilateral approach. 2. Benefits and risks of surgical intervention was discussed including possibility of open technique. 3. DVT prophylaxis. 4. Antibiotic prophylaxis. Past Medical History Past Medical History: Seizure Disorder Additional Past Medical History / Comment(s): insomnia, back pain, turrets. last seizure 2018 does not take medication for this. migraines up to 15 times a month with nausea History of Any Multi-Drug Resistant Organisms: None Reported Past Surgical History: No Surgical Hx Reported Past Anesthesia/Blood Transfusion Reactions: No Reported Reaction Additional Past Anesthesia/Blood Transfusion Reaction / Comment(s): has never anesthesia Smoking Status: Current every day smoker - Past Family History Mother Family Medical History: Cancer Additional Family Medical History / Comment(s): cervical cancer x2 Medications and Allergies Home Medications Medication Instructions Recorded Confirmed Type No Known Home Medications 10/11/20 10/11/20 History Allergies Allergy/AdvReac Type Severity Reaction Status Date / Time MOSQUITO Allergy Swelling Uncoded 10/11/20 09:38
[~2020-10-13 07:38] MED LIST: ACETAMINOPHEN TAB 500 MG TAB PO STA; DEXAMETHASONE SOD PHOSPHATE 4 MG/ML 1 ML VIAL IV ONE; GABAPENTIN 300 MG CAP PO STA; HEPARIN SODIUM,PORCINE 5,000 UNIT/ML 1 ML VIAL SQ PRN; HYDROmorphone 0.5 MG/0.5 ML SYRINGE IVP PRN; LACTATED RINGERS 1,000 ML IV SCH; MELOXICAM 7.5 MG TAB PO STA; ONDANSETRON 4 MG/2 ML VIAL IVP ONE; TAMSULOSIN 0.4 MG CAP.ER.24H PO STA
[2020-10-13] MEDS ORDERED: SUCCINYLCHOLINE CHLORIDE 100 MG/5 ML SYR IV ONE (10:05)
[2020-10-13] MEDS ORDERED: GLYCOPYRROLATE 0.2 MG/ML 2 ML VIAL ONE (10:05)
[2020-10-13] MEDS ORDERED: PROPOFOL 10 MG/ML 20 ML VIAL IV ONE (10:05)
[2020-10-13] MEDS ORDERED: ROCURONIUM 10 MG/ML (5 ML VIAL) IV ONE (10:05)
[2020-10-13] MEDS ORDERED: LIDOCAINE 1% INJ 10MG/ML (20 ML MDV) ONE (10:05)
[2020-10-13] MEDS ORDERED: MIDAZOLAM 2 MG/2 ML VIAL ONE (10:05)
[2020-10-13] MEDS ORDERED: fentaNYL (PF) 50 MCG/ML 2 ML AMP ONE (10:05)
[2020-10-13] MEDS ORDERED: HYDROmorphone (PF) 1 MG/ML ONE (10:05)
[2020-10-13] MEDS ORDERED: NEOSTIGMINE 1 MG/ML 10 ML VIAL ONE (10:05)
[2020-10-13] MEDS ORDERED: LIDOCAINE 1%-EPI 1:100,000 20 ML VIAL SQ ONE (10:10)
[2020-10-13 10:20] LABS: Basophils # (A) 0.1 k/uL (0-0.2); Basophils % (A) 1 %; Eosinophils # (A) 0.3 k/uL (0-0.7); Eosinophils % (A) 3 %; HCT 46.1 % (39.0-53.0); HGB 15.8 gm/dL (13.0-17.5); Lymphocytes # (A) 2.9 k/uL (1.0-4.8); Lymphocytes % (A) 31 %; MCH 31.2 pg (25.0-35.0); MCHC 34.3 g/dL (31.0-37.0); MCV 91.1 fL (80.0-100.0); Mean Platelet Volume 7.6; Monocytes # (A) 0.9 k/uL (0-1.0); Monocytes % (A) 10 %; Neutrophils # (A) 4.9 k/uL (1.3-7.7); Neutrophils % (A) 53 %; Platelet Count 277 k/uL (150-450); RBC 5.06 m/uL (4.30-5.90); WBC 9.3 k/uL (3.8-10.6)
[2020-10-13 10:24] LABS: ALT 13 U/L (4-49); AST 27 U/L (17-59); African American GFR (CKD) >90 (>60 ml/min/1.73 sqM); Albumin 4.7 g/dL (3.5-5.0); Alkaline Phosphatase 56 U/L (38-126); Anion Gap 9 mmol/L; Blood Urea Nitrogen 15 mg/dL (9-20); Calcium 9.7 mg/dL (8.4-10.2); Carbon Dioxide 27 mmol/L (22-30); Chloride 105 mmol/L (98-107); Glucose 110 mg/dL (74-99); Non-African American GFR(CKD) >90 (>60 ml/min/1.73 sqM); Potassium 3.6 mmol/L (3.5-5.1); Sodium 141 mmol/L (137-145); Total Bilirubin 0.8 mg/dL (0.2-1.3); Total Protein 7.7 g/dL (6.3-8.2)
[2020-10-13] MEDS ORDERED: LACTATED RINGERS 1,000 ML IV ONE (11:36)
--- NOTE | 2020-10-13 12:09 | P.OP ---
Date of Procedure: 10/13/20 Description of Procedure: SURGEON: FARIDA MEJIAS MD PREOPERATIVE DIAGNOSES: 1. Initial right inguinal hernia. 2. Tobacco abuse disorder POSTOPERATIVE DIAGNOSES: 1. Initial right inguinal hernia. 2. Tobacco abuse disorder OPERATION: 1. Robotic-assisted da Emiliano Xi laparoscopic right inguinal hernia repair with mesh, 11.[address] ANESTHESIA: General with local anesthetic ESTIMATED BLOOD LOSS: 5 mL. SPECIMENS REMOVED: Right inguinal hernia sac COMPLICATIONS: None. FINDINGS: 1. Large Nyhus type II indirect inguinal hernia, reducible, initial, 3 cm 2. Non-absorbable 2-0 VLOC used INDICATIONS: The patient is a 25-year-old gentleman who presents with history of right groin pain. Now presents for definitive surgical intervention. Laparoscopic versus open and robotic approaches were discussed. Benefits and risks including bleeding, infection, injury to the vas deferens as well as sterility and chronic groin pain were reviewed. Placement of mesh was also described. Informed consent was obtained. DESCRIPTION: In the preoperative area, the patient was marked with indelible marker along the inguinal hernia. The patient was brought to the operating room and initially laid in supine position. The abdomen had been prepped and draped in standard sterile fashion. Ioban draping was also placed. Prior to incision, a timeout protocol was confirmed with surgical team regarding patient's name including procedures to be performed and location along the right groin. Initial positioning for the robotic assisted ports were selected whereby 20 cm superior to the target anatomy, 0 degree 5 mm laparoscopic trocar entry was performed at the left upper quadrant. The abdomen was insufflated to 15 mmHg which he had tolerated well. Diagnostic laparoscopy demonstrated an indirect inguinal hernia along the right groin. Next, along the epigastrium, 8 mm robot trocar was placed. An 8-mm robotic trocar was placed under direct visualization at the right upper quadrant. An 8 mm port was placed at the left upper quadrant. All trocars were positioned between 8 to 10-cm apart from each other. The ShoutNow XI robot was primed, draped, prepared for docking along the right side of the patient. The patient was placed in Trendelenberg position 16-degrees. I then went to the ShoutNow Xi console. The senior office support assistant sosa was at bedside for exchange of the robot arms and equipment. No hernia was identified along the left groin. The right inguinal hernia sac was evaginated whereby the peritoneum was scored using Endo scissors with cautery. The hernia sac was indirect extending to the scrotum. Once completely reduced into the abdominal cavity, the peritoneal sac of the hernia was stripped along an indirect inguinal hernia and a lipoma and sac was resected and then passed off for further pathological analysis. The size of the hernia defect was 3 cm with intraoperative films obtained. Using a 2-0 VLOC, the peritoneal defect of the right inguinal hernia site was closed using a pursestring suture. The defect was found to be completely closed with complete reduction of the right direct inguinal hernia was confirmed. As an onlay, an 11.[address] mesh by [employer] was initially cut in half and entered into the abdominal cavity via the 8 mm trocar. The mesh was tacked to the pelvis using 2-0 VLOC 9-inch length sutures. The robot was undocked from the patient's bedside. I then rescrubbed into the case. Insufflation was released from the abdominal cavity and all instruments were removed from the abdominal cavity. The rest of incisions were reapproximated using 4-0 Monocryl in a running subcuticular fashion. Local anesthetic was placed along the incision including for a right groin block. Incisions were cleansed using dilute hydrogen peroxide. Liquid glue was applied to the skin. At the end of the procedure, the needle, sponge and instrument counts had been verified correct by the surgical nurse practitioner. The patient had tolerated the procedure well and was taken to the postanesthesia care unit in stable condition. Plan - Discharge Summary Discharge Rx Participant: No New Discharge Prescriptions: New Ibuprofen [Motrin] 600 mg PO Q8HR PRN #30 tab PRN Reason: Pain Acetaminophen Tab [Tylenol Tab] 1,000 mg PO Q6HR PRN #30 tablet PRN Reason: Pain Discharge Medication List Acetaminophen Tab [Tylenol Tab] 1,000 mg PO Q6HR PRN #30 tablet 10/13/20 [Rx] Ibuprofen [Motrin] 600 mg PO Q8HR PRN #30 tab 10/13/20 [Rx] Follow up Appointment(s)/Referral(s): Farida Mejias MD [STAFF PHYSICIAN] - 10/18/20 Patient Instructions/Handouts: Laparoscopic Herniorrhaphy (DC), Inguinal Hernia Repair (DC), How to Stop Smoking (DC) Activity/Diet/Wound Care/Special Instructions: AVOID TOBACCO USE FOR COMPLETE RECOVERY No lifting over 10 pounds in 2 weeks until October 27December shower. No bath tub soaks for two weeks until October 27 Diet as tolerated. Use Tylenol and ibuprofen or Aleve scheduled for the next 24-48 hours for best pain relief. Use ice along incisions for today to prevent swelling. Discharge Disposition: HOME SELF-CARE
[2020-10-13] MEDS ORDERED: diphenhydrAMINE 50 MG/ML 1 ML VIAL IVP ONE (12:10)
[2020-10-13] MEDS ORDERED: MIDAZOLAM 2 MG/2 ML VIAL IVP ONE (12:16)
[2020-10-13] MEDS ORDERED: fentaNYL (PF) 50 MCG/ML 2 ML AMP IVP ONE (12:16)
[2020-10-13] MEDS ORDERED: KETOROLAC 15 MG/ML 1 ML VIAL IVP ONE (12:19)
[2020-10-13 12:29] VITALS: TEMP 98.6
[2020-10-13 14:01] VITALS: BP 135/74; PULSE 72; RESP 18
== END 2020-10-13 14:22 | disposition home or self-care (01) ==
LOC: OR 07:38
PROVIDERS: ATTEND Surgery Plastic and Reconstructive Surgery
DX: K40.90 Unilateral inguinal hernia, without obstruction or gangrene, not specified as recurrent (principal); F17.210 Nicotine dependence, cigarettes, uncomplicated; G40.909 Epilepsy, unspecified, not intractable, without status epilepticus; Z80.49 Family history of malignant neoplasm of other genital organs; Z91.09 Other allergy status, other than to drugs and biological substances
CPT/HCPCS: 80053; 85025; 88302; 49650; C1781; J2250; J1200; J1644; J1100; J2710; J0690; J2405; J2001; J3010; J1170; J1885; J0330; J2704

== ENCOUNTER 2021-04-27 13:07 | Emergency (ER) | payer OTHER ==
[2021-04-27 13:29] VITALS: BP 109/62; PULSE 100; RESP 18; TEMP 98.3
--- NOTE | 2021-04-27 14:04 | XR ---
EXAMINATION TYPE: XR chest 2V DATE OF EXAM: 04/27/2021 COMPARISON: Chest x-ray 10/28/2018 HISTORY: Painful breathing, chest pain TECHNIQUE: Frontal and lateral views of the chest are obtained. FINDINGS: There is no focal air space opacity, pleural effusion, or pneumothorax seen. The cardiac silhouette size is within normal limits. The osseous structures are intact, patient is rotated some what to the left. IMPRESSION: No acute cardiopulmonary process.
--- NOTE | 2021-04-27 14:39 | ED ---
General Adult HPI - General Chief complaint: Shortness of Breath Stated complaint: SOB Time Seen by Provider: 04/27/21 14:30 Source: patient, RN notes reviewed Mode of arrival: ambulatory Limitations: no limitations - History of Present Illness Initial comments: Patient is a 26-year-old male that presents to emergency department complaining of pain on breathing. He notes that he just recently started vaping approximately a week ago and all the symptoms started after this. He notes that he is been try to quit smoking so he started tapering as an alternative. He reported that since she started having the burning with breathing he tossed out all of his vape pens and wanted to make sure his lungs looked okay. He is requesting a chest x-ray today. He was in otherwise well-appearing 26-year-old male in no apparent distress or pain. He denied any chest pain shortness of breath headache nausea vomiting diarrhea constipation fever fatigue chills. - Related Data Previous Rx's Medication Instructions Recorded Acetaminophen Tab [Tylenol Tab] 1,000 mg PO Q6HR PRN #30 tablet 10/13/20 Ibuprofen [Motrin] 600 mg PO Q8HR PRN #30 tab 10/13/20 Allergies Allergy/AdvReac Type Severity Reaction Status Date / Time MOSQUITO Allergy Swelling Uncoded 10/13/20 08:16 Review of Systems ROS Statement: Those systems with pertinent positive or pertinent negative responses have been documented in the HPI. ROS Other: All systems not noted in ROS Statement are negative. Past Medical History Past Medical History: Seizure Disorder Additional Past Medical History / Comment(s): insomnia, back pain, turrets. last seizure 2018 does not take medication for this. migraines up to 15 times a month with nausea History of Any Multi-Drug Resistant Organisms: None Reported Past Surgical History: No Surgical Hx Reported Past Anesthesia/Blood Transfusion Reactions: No Reported Reaction Additional Past Anesthesia/Blood Transfusion Reaction / Comment(s): has never anesthesia Past Psychological History: ADD/ADHD, Anxiety, Bipolar, Depression Smoking Status: Current every day smoker, Vaper Past Alcohol Use History: None Reported Past Drug Use History: Marijuana - Past Family History Mother Family Medical History: Cancer Additional Family Medical History / Comment(s): cervical cancer x2 General Exam Limitations: no limitations General appearance: alert, in no apparent distress Head exam: Present: atraumatic, normocephalic, normal inspection Eye exam: Present: normal appearance, PERRL, EOMI. Absent: scleral icterus, conjunctival injection, periorbital swelling Neck exam: Present: normal inspection Respiratory exam: Present: normal lung sounds bilaterally. Absent: respiratory distress, wheezes, rales, rhonchi, stridor Cardiovascular Exam: Present: regular rate, normal rhythm, normal heart sounds. Absent: systolic murmur, diastolic murmur, rubs, gallop, clicks Extremities exam: Present: normal inspection, full ROM, normal capillary refill. Absent: tenderness, pedal edema, joint swelling, calf tenderness Neurological exam: Present: alert, oriented X3 Psychiatric exam: Present: normal affect, normal mood Skin exam: Present: warm, dry, intact, normal color. Absent: rash Course Vital Signs 04/27/21 13:26 Temperature 98.3 F Pulse Rate 100 Respiratory 18 Rate Blood Pressure 109/62 O2 Sat by Pulse 96 Oximetry Medical Decision Making - Medical Decision Making 26-year-old male complaining of burning on breathing after using E cigarettes, wanting a chest x-ray. Chest x-ray ordered. Chest x-ray negative for any acute cardiopulmonary process. Case discussed with Dr. Avila, patient discharge home. - Radiology Data Radiology results: report reviewed, image reviewed Chest x-ray: No acute cardiopulmonary process. Disposition Clinical Impression: Dyspnea, Nicotine dependence due to vaping non-tobacco product Disposition: HOME SELF-CARE Condition: Stable Instructions (If sedation given, give patient instructions): Electronic Cigarettes and Your Health (ED) Additional Instructions: Please return to the Emergency Department if symptoms worsen or any other concerns. I counseled the patient for smoking cessation for greater than 3 minutes Follow-up with primary care in 1-2 days. Is patient prescribed a controlled substance at d/c from ED?: No Referrals: None,Stated [Primary Care Provider] - 1-2 days Time of Disposition: 14:38
== END 2021-04-27 15:00 | disposition home or self-care (01) ==
LOC: EC 13:07
DX: R06.00 Dyspnea, unspecified (principal); F17.290 Nicotine dependence, other tobacco product, uncomplicated; F12.90 Cannabis use, unspecified, uncomplicated; Z79.1 Long term (current) use of non-steroidal anti-inflammatories (NSAID)
CPT/HCPCS: 71046; 99284

== ENCOUNTER 2022-03-28 16:44 | Emergency (ER) | payer OTHER ==
[2022-03-28 17:26] VITALS: BP 132/79; PULSE 74; RESP 16; TEMP 98.3
[2022-03-28] MEDS ORDERED: KETOROLAC 15 MG/ML 1 ML VIAL IM STA (17:56)
[2022-03-28] MEDS ORDERED: methylPREDNISolone SOD SUCCI 125 MG/2 ML VIAL IM ONE (17:57)
[2022-03-28] MEDS ORDERED: LIDOCAINE 5% PATCH TOPICAL SCH (18:15)
--- NOTE | 2022-03-28 18:29 | ED ---
Neck Injury/Pain HPI - General Chief Complaint: Neck Pain/Injury Stated Complaint: Shoulder pain Time Seen by Provider: 03/28/22 17:37 Mode of arrival: ambulatory Limitations: no limitations - History of Present Illness Initial Comments: Patient is a 27-year-old male who presents to the emergency department for the chief complaint of neck pain. Patient states he woke up with the neck pain yesterday. Patient feels that he slept on his neck wrong. Denies injury. Patient endorses left-sided neck pain with tingling into his left shoulder and upper arm. States he took Motrin with no relief. Denies fever, chills, shortness of breath, chest pain, and other concerns. - Related Data Previous Rx's Medication Instructions Recorded Acetaminophen Tab [Tylenol Tab] 1,000 mg PO Q6HR PRN #30 tablet 10/13/20 Ibuprofen [Motrin] 600 mg PO Q8HR PRN #30 tab 10/13/20 Lidocaine 5% Patch [Lidoderm 5% 1 patch TOPICAL DAILY PRN #5 patch 03/28/22 Patch] predniSONE 50 mg PO DAILY #5 tab 03/28/22 Allergies Allergy/AdvReac Type Severity Reaction Status Date / Time MOSQUITO Allergy Swelling Uncoded 03/28/22 17:26 Review of Systems ROS Statement: Those systems with pertinent positive or pertinent negative responses have been documented in the HPI. ROS Other: All systems not noted in ROS Statement are negative. Past Medical History Past Medical History: Seizure Disorder Additional Past Medical History / Comment(s): insomnia, back pain, turrets. last seizure 2018 does not take medication for this. migraines up to 15 times a month with nausea History of Any Multi-Drug Resistant Organisms: None Reported Past Surgical History: No Surgical Hx Reported Past Anesthesia/Blood Transfusion Reactions: No Reported Reaction Additional Past Anesthesia/Blood Transfusion Reaction / Comment(s): has never anesthesia Past Psychological History: ADD/ADHD, Anxiety, Bipolar, Depression Smoking Status: Current every day smoker, Vaper Past Alcohol Use History: None Reported Past Drug Use History: Marijuana - Past Family History Mother Family Medical History: Cancer Additional Family Medical History / Comment(s): cervical cancer x2 General Exam Limitations: no limitations General appearance: alert, in no apparent distress Head exam: Present: atraumatic, normocephalic, normal inspection Neck exam: Present: normal inspection, tenderness (left sternocleidomastoid), fu ll ROM (pain with left lateral rotation). Absent: lymphadenopathy Respiratory exam: Present: normal lung sounds bilaterally. Absent: respiratory distress, wheezes, rales, rhonchi, stridor Cardiovascular Exam: Present: regular rate, normal rhythm, normal heart sounds. Absent: systolic murmur, diastolic murmur, rubs, gallop, clicks GI/Abdominal exam: Present: soft, normal bowel sounds. Absent: distended, tenderness, guarding, rebound, rigid Extremities exam: Present: normal inspection Neurological exam: Present: alert, oriented X3, CN II-XII intact Psychiatric exam: Present: normal affect, normal mood Skin exam: Present: warm, dry, intact, normal color. Absent: rash Course Vital Signs 03/28/22 17:24 Temperature 98.3 F Pulse Rate 74 Respiratory 16 Rate Blood Pressure 132/79 O2 Sat by Pulse 98 Oximetry Medical Decision Making - Medical Decision Making This is a 27-year-old male who presents with left-sided neck pain. Thorough history and examination were performed. There is reproducible pain with tenderness of the left sternocleidomastoid. Full range of motion. Pain with left lateral rotation of the neck. Patient given symptomatic treatment in the emergency Department which improved symptoms. He will be sent home with symptomatic management for musculoskeletal neck pain. Dr. Mcconnell is my attending. Disposition Clinical Impression: Neck pain Disposition: HOME SELF-CARE Condition: Good Instructions (If sedation given, give patient instructions): Acute Neck Pain (ED) Additional Instructions: Please take medication as directed. You will start the prednisone prescription tomorrow. Take Tylenol [id number] as directed for pain. Stretch the neck 3 times a day lightly as we discussed. Follow up with primary care provider in one to 2 days. Return to the emergency department if you experience new, concerning, or worsening symptoms. Prescriptions: Lidocaine 5% Patch [Lidoderm 5% Patch] 1 patch TOPICAL DAILY PRN #5 patch PRN Reason: Pain predniSONE 50 mg PO DAILY #5 tab Is patient prescribed a controlled substance at d/c from ED?: No Referrals: None,Stated [Primary Care Provider] - 1-2 days Time of Disposition: 18:29
== END 2022-03-28 18:45 | disposition home or self-care (01) ==
LOC: EC 16:44
DX: M54.2 Cervicalgia (principal); F17.200 Nicotine dependence, unspecified, uncomplicated; Z91.038 Other insect allergy status
CPT/HCPCS: 99283; 96372; J2930; J1885

== ENCOUNTER 2023-02-20 12:18 | Emergency (ER) | payer OTHER ==
[2023-02-20 12:24] VITALS: RESP 16
[2023-02-20] MEDS ORDERED: ONDANSETRON 4 MG/2 ML VIAL IVP STA (12:35)
[2023-02-20] MEDS ORDERED: SODIUM CHLORIDE 0.9% 1,000 ML IV ONE (12:36)
--- NOTE | 2023-02-20 12:37 | ED ---
General Adult HPI - General Chief complaint: Nausea/Vomiting/Diarrhea Stated complaint: Nausea,Vomitting Time Seen by Provider: 02/20/23 12:20 Source: patient, RN notes reviewed, old records reviewed Mode of arrival: ambulatory Limitations: no limitations - History of Present Illness Initial comments: This is a 28 her old male presents emergency Department stating he cannot stop vomiting over the last 3 days. Patient states she does smoke marijuana daily. Patient states he hasn't smoked much today though. Patient denies any diarrhea. Patient denies abdominal pain. Patient denies any fever chills. Patient states everyone in his family had the same thing but he just can't seem to stop patient denies any back pain. Patient denies any chest pain difficult breathing shortness of breath - Related Data Previous Rx's Medication Instructions Recorded Acetaminophen Tab [Tylenol Tab] 1,000 mg PO Q6HR PRN #30 tablet 10/13/20 Ibuprofen [Motrin] 600 mg PO Q8HR PRN #30 tab 10/13/20 Lidocaine 5% Patch [Lidoderm 5% 1 patch TOPICAL DAILY PRN #5 patch 03/28/22 Patch] predniSONE 50 mg PO DAILY #5 tab 03/28/22 Allergies Allergy/AdvReac Type Severity Reaction Status Date / Time MOSQU[place]O Allergy Swelling Uncoded 03/28/22 17:26 Review of Systems ROS Statement: Those systems with pertinent positive or pertinent negative responses have been documented in the HPI. ROS Other: All systems not noted in ROS Statement are negative. Past Medical History Past Medical History: Seizure Disorder Additional Past Medical History / Comment(s): insomnia, back pain, turrets. last seizure 2018 does not take medication for this. migraines up to 15 times a month with nausea History of Any Multi-Drug Resistant Organisms: None Reported Past Surgical History: No Surgical Hx Reported Past Anesthesia/Blood Transfusion Reactions: No Reported Reaction Additional Past Anesthesia/Blood Transfusion Reaction / Comment(s): has never anesthesia Past Psychological History: ADD/ADHD, Anxiety, Bipolar, Depression Smoking Status: Current every day smoker, Vaper Past Alcohol Use History: None Reported Past Drug Use History: Marijuana - Past Family History Mother Family Medical History: Cancer Additional Family Medical History / Comment(s): cervical cancer x2 General Exam - General Exam Comments Initial Comments: GENERAL: Patient is well-developed and well-nourished. Patient is nontoxic and well- hydrated and is in mild distress. ENT: Neck is soft and supple. No significant lymphadenopathy is noted. Oropharynx is clear. Moist mucous membranes. Neck has full range of motion without e liciting any pain. EYES: The sclera were anicteric and conjunctiva were pink and moist. Extraocular movements were intact and pupils were equal round and reactive to light. Eyelids were unremarkable. PULMONARY: Unlabored respirations. Good breath sounds bilaterally. No audible rales rhonchi or wheezing was noted. CARDIOVASCULAR: There is a regular rate and rhythm without any murmurs gallops or rubs. ABDOMEN: Soft and nontender with normal bowel sounds. SKIN: Skin is clear with no lesions or rashes and otherwise unremarkable. NEUROLOGIC: Patient is alert and oriented x3. Cranial nerves II through XII are grossly intact. Motor and sensory are also intact. Normal speech, volume and content. Symmetrical smile. MUSCULOSKELETAL: Normal extremities with adequate strength and full range of motion. LYMPHATICS: No significant lymphadenopathy is noted PSYCHIATRIC: Normal psychiatric evaluation. Limitations: no limitations Course Vital Signs 02/20/23 12:20 Temperature 99.0 F Pulse Rate 76 Respiratory 16 Rate Blood Pressure 127/73 O2 Sat by Pulse 98 Oximetry Medical Decision Making - Medical Decision Making Was pt. sent in by a medical professional or institution (, PA, PURE PAK MACHINE OPERATOR, urgent care, hospital, or penitentiary...) When possible be specific @ -No Did you speak to anyone other than the patient for history (EMS, parent, family, police, friend...)? What history was obtained from this source @ -No Did you review nursing and triage notes (agree or disagree)? Why? @ -I reviewed and agree with nursing and triage notes Were old charts reviewed (outside hosp., previous admission, EMS record, old EKG, old radiological studies, urgent care reports/EKG's, penitentiary records)? Report findings @ -No old charts were reviewed Differential Diagnosis (chest pain, altered mental status, abdominal pain women, abdominal pain men, vaginal bleeding, weakness, fever, dyspnea, syncope, headache, dizziness, GI bleed, back pain, seizure, CVA, palpatations, mental health, musculoskeletal)? @ -Differential Abdominal Pain Men: Appendicitis, cholecystitis, diverticulosis, ischemic bowel, pancreatitis, hepatitis, UTI, gastroenteritis, AAA, incarcerated hernia, bowel obstruction, constipation, inflammatory bowel, hepatitis, peptic ulcer disease, splenic infarction, perforated viscus, testicular torsion, this is not meant to be an all-inclusive list EKG interpreted by me (3pts min.). @ -As above X-rays interpreted by me (1pt min.). @ -None done CT interpreted by me (1pt min.). @ -None done U/S interpreted by me (1pt. min.). @ -None done What testing was considered but not performed or refused? (CT, X-rays, U/S, labs)? Why? @ -None What meds were considered but not given or refused? Why? @ -None Did you discuss the management of the patient with other professionals (professionals i.e. Dr., PA, PURE PAK MACHINE OPERATOR, lab, RT, psych nurse, social work professor, window installation subcontractor, teacher, chief investment officer, lining caser)? Give summary @ -No Was smoking cessation discussed for >3mins.? @ -No Was critical care preformed (if so, how long)? @ -No Were there social determinants of health that impacted care today? How? (Homelessness, low income, unemployed, alcoholism, drug addiction, transportation, low edu. Level, literacy, decrease access to med. care, [facility], rehab)? @ -No Was there de-escalation of care discussed even if they declined (Discuss DNR or withdrawal of care, Hospice)? DNR status @ -No What co-morbidities impacted this encounter? (DM, HTN, Smoking, COPD, CAD, Cancer, CVA, ARF, Chemo, Hep., AIDS, mental health diagnosis, sleep apnea, morbid obesity)? @ -None Was patient admitted / discharged? Hospital course, mention meds given and route, prescriptions, significant lab abnormalities, going to OR and other pertinent info. @ -Patient's lab work indicated she was hypokalemic and I gave him [facility] 10 emergency department. Patient will follow-up with his primary medical care doctor and will be sent home with Zofran. Patient was given Zofran in the hospital and it helped significantly was also given a liter of fluid. Undiagnosed new problem with uncertain prognosis? @ -No Drug Therapy requiring intensive monitoring for toxicity (Heparin, Nitro, Insulin, Cardizem)? @ -No Were any procedures done? @ -No Diagnosis/symptom? @ -Vomiting Acute, or Chronic, or Acute on Chronic? @ -Acute Uncomplicated (without systemic symptoms) or Complicated (systemic symptoms)? @ -Uncomplicated Side effects of treatment? @ -No Exacerbation, Progression, or Severe Exacerbation? @ -No Poses a threat to life or bodily function? How? (Chest pain, [place], [place], pneumonia, PE, COPD, DKA, ARF, appy, cholecystitis, CVA, Diverticulitis, Homicidal, Suicidal, threat to staff... and all critical care pts) @ -No Diagnosis/symptom? @ -Hypokalemia Acute, or Chronic, or Acute on Chronic? @ -Acute Uncomplicated (without systemic symptoms) or Complicated (systemic symptoms)? @ -Complicated Side effects of treatment? @ -none Exacerbation, Progression, or Severe Exacerbation] @ -no Poses a threat to life or bodily function? @ -no - Lab Data Result diagrams: 02/20/23 12:38 02/20/23 12:38 Lab Results 02/20/23 02/20/23 Range/Units 12:38 12:38 WBC 14.2 H (3.8-10.6) k/uL RBC 5.24 (4.30-5.90) m/uL Hgb 16.9 (13.0-17.5) gm/dL Hct 47.1 (39.0-53.0) % MCV 90.0 (80.0-100.0) fL MCH 32.3 (25.0-35.0) pg MCHC 35.8 (31.0-37.0) g/dL RDW 12.1 (11.5-15.5) % Plt Count 279 (150-450) k/uL MPV 7.5 Neutrophils % 78 % Lymphocytes % 10 % Monocytes % 11 % Eosinophils % 0 % Basophils % 0 % Neutrophils # 11.1 H (1.3-7.7) k/uL Lymphocytes # 1.4 (1.0-4.8) k/uL Monocytes # 1.5 H (0-1.0) k/uL Eosinophils # 0.1 (0-0.7) k/uL Basophils # 0.0 (0-0.2) k/uL Sodium 138 (137-145) mmol/L Potassium 3.2 L (3.5-5.1) mmol/L Chloride 95 L (98-107) mmol/L Carbon Dioxide 29 (22-30) mmol/L Anion Gap 14 mmol/L BUN 18 (9-20) mg/dL Creatinine 0.87 (0.66-1.25) mg/dL Est GFR (CKD-EPI)AfAm >90 (>60 ml/min/1.73 sqM) Est GFR (CKD-EPI)NonAf >90 (>60 ml/min/1.73 sqM) Glucose 125 H (74-99) mg/dL Calcium 9.7 (8.4-10.2) mg/dL Total Bilirubin 0.8 (0.2-1.3) mg/dL AST 24 (17-59) U/L ALT 21 (4-49) U/L Alkaline Phosphatase 55 (38-126) U/L Total Protein 8.3 H (6.3-8.2) g/dL Albumin 4.9 (3.5-5.0) g/dL Disposition Clinical Impression: Acute vomiting, Hypokalemia Disposition: HOME SELF-CARE Instructions (If sedation given, give patient instructions): Acute Nausea and Vomiting (ED) Is patient prescribed a controlled substance at d/c from ED?: No Referrals: None,Stated [Primary Care Provider] - 1-2 days Time of Disposition: 14:20
[2023-02-20 13:08] LABS: Basophils % (A) 0 %; Eosinophils # (A) 0.1 k/uL (0-0.7); Eosinophils % (A) 0 %; HCT 47.1 % (39.0-53.0); HGB 16.9 gm/dL (13.0-17.5); Lymphocytes # (A) 1.4 k/uL (1.0-4.8); Lymphocytes % (A) 10 %; MCH 32.3 pg (25.0-35.0); MCHC 35.8 g/dL (31.0-37.0); Mean Platelet Volume 7.5; Monocytes # (A) 1.5 k/uL (0-1.0); Monocytes % (A) 11 %; Neutrophils # (A) 11.1 k/uL (1.3-7.7); Neutrophils % (A) 78 %; Platelet Count 279 k/uL (150-450); RBC 5.24 m/uL (4.30-5.90); RDW 12.1 % (11.5-15.5); WBC 14.2 k/uL (3.8-10.6)
[2023-02-20 13:19] LABS: ALT 21 U/L (4-49); AST 24 U/L (17-59); African American GFR (CKD) >90 (>60 ml/min/1.73 sqM); Albumin 4.9 g/dL (3.5-5.0); Alkaline Phosphatase 55 U/L (38-126); Anion Gap 14 mmol/L; Blood Urea Nitrogen 18 mg/dL (9-20); Calcium 9.7 mg/dL (8.4-10.2); Carbon Dioxide 29 mmol/L (22-30); Chloride 95 mmol/L (98-107); Glucose 125 mg/dL (74-99); Non-African American GFR(CKD) >90 (>60 ml/min/1.73 sqM); Potassium 3.2 mmol/L (3.5-5.1); Sodium 138 mmol/L (137-145); Total Bilirubin 0.8 mg/dL (0.2-1.3); Total Protein 8.3 g/dL (6.3-8.2)
[2023-02-20] MEDS ORDERED: POTASSIUM CHLORIDE ER 20 MEQ TAB.ER PO STA (13:42)
[2023-02-20] MEDS ORDERED: ONDANSETRON 4 MG ODT STARTER PACK 2 TAB BTL PO STA (14:23)
[2023-02-20 14:30] VITALS: BP 112/65; PULSE 65; TEMP 98.9
== END 2023-02-20 14:34 | disposition home or self-care (01) ==
LOC: EC 12:18
DX: R11.10 Vomiting, unspecified (principal); E87.6 Hypokalemia; F17.290 Nicotine dependence, other tobacco product, uncomplicated; F12.90 Cannabis use, unspecified, uncomplicated; Z88.8 Allergy status to other drugs, medicaments and biological substances; Z86.59 Personal history of other mental and behavioral disorders
CPT/HCPCS: 36415; 80053; 85025; 99284; 96374; 96361; J2405; S0119

== ENCOUNTER 2024-07-02 21:58 | Emergency (ER) | payer SELFPAY ==
[2024-07-02 22:07] VITALS: RESP 18; TEMP 98.5
--- NOTE | 2024-07-02 22:28 | ED ---
Lower Extremity Injury HPI - General Chief Complaint: Extremity Injury, Lower Stated Complaint: R Knee Pain Time Seen by Provider: 07/02/24 22:25 Source: patient, RN notes reviewed Mode of arrival: ambulatory Limitations: no limitations - History of Present Illness Initial Comments: 29-year-old male presenting to the ER chief complaint of right knee pain x 1 week. Patient states the pain is anteriorolateral and worse with weightbearing. He believes he "tore a meniscus" as he states he tore his meniscus 5 years ago where orthopedics recommended surgery but patient declined as he states he did not have the money for at the time. Reports his knee healed on its own, however states he was working on floors last month and did not use kneepads which he believes is what caused his knee injury. States over the past week his right knee has become more swollen and painful. - Related Data Previous Rx's Medication Instructions Recorded Acetaminophen Tab [Tylenol Tab] 1,000 mg PO Q6HR PRN #30 tablet 10/13/20 Ibuprofen [Motrin] 600 mg PO Q8HR PRN #30 tab 10/13/20 Lidocaine 5% Patch [Lidoderm 5% 1 patch TOPICAL DAILY PRN #5 patch 03/28/22 Patch] predniSONE 50 mg PO DAILY #5 tab 03/28/22 Allergies Allergy/AdvReac Type Severity Reaction Status Date / Time MOSQU[place]O Allergy Swelling Uncoded 07/02/24 22:07 Review of Systems ROS Statement: Those systems with pertinent positive or pertinent negative responses have been documented in the HPI. ROS Other: All systems not noted in ROS Statement are negative. Past Medical History Past Medical History: Seizure Disorder Additional Past Medical History / Comment(s): insomnia, back pain, turrets. last seizure 2018 does not take medication for this. migraines up to 15 times a month with nausea History of Any Multi-Drug Resistant Organisms: None Reported Past Surgical History: Hernia Repair Past Anesthesia/Blood Transfusion Reactions: No Reported Reaction Additional Past Anesthesia/Blood Transfusion Reaction / Comment(s): has never anesthesia Past Psychological History: ADD/ADHD, Anxiety, Bipolar, Depression Smoking Status: Current every day smoker, Vaper Past Alcohol Use History: Occasional Past Drug Use History: Marijuana - Past Family History Mother Family Medical History: Cancer Additional Family Medical History / Comment(s): cervical cancer x2 General Exam Limitations: no limitations General appearance: alert, in no apparent distress Head exam: Present: atraumatic, normocephalic, normal inspection Right Upper Leg exam: Present: normal inspection, full ROM. Absent: tenderness, swelling Knee exam: Present: normal inspection, full ROM (Pain with flexion), tenderness (Mild anterior tenderness to palpation). Absent: swelling, abrasion, laceration, posterior draw sign, pain/laxity with valgus, pain/laxity with varus (Negative Abdi's) Lower Leg exam: Present: normal inspection, full ROM. Absent: tenderness, swelling Ankle exam: Present: normal inspection, full ROM. Absent: tenderness, swelling Foot/Toe exam: Present: normal inspection, full ROM. Absent: tenderness, swelling Neurovascular tendon exam: Present: no vascular compromise. Absent: pulse deficit, abnormal cap refill, sensory deficit Neurological exam: Present: alert, oriented X3 Psychiatric exam: Present: normal affect, normal mood Skin exam: Present: warm, dry, intact, normal color. Absent: rash Course Vital Signs 07/02/24 07/03/24 22:06 00:11 Temperature 98.5 F Pulse Rate 93 82 Respiratory 18 18 Rate Blood Pressure 120/70 99/65 O2 Sat by Pulse 100 98 Oximetry Medical Decision Making - Medical Decision Making Was pt. sent in by a medical professional or institution (, PA, PRACTICE ADMINISTRATOR, urgent care, hospital, or fdc...) When possible be specific @ -No Did you speak to anyone other than the patient for history (EMS, parent, family, police, friend...)? What history was obtained from this source @ -No Did you review nursing and triage notes (agree or disagree)? Why? @ -I reviewed and agree with nursing and triage notes Were old charts reviewed (outside hosp., previous admission, EMS record, old EKG, old radiological studies, urgent care reports/EKG's, fdc records)? Report findings @ -No old charts were reviewed Differential Diagnosis (chest pain, altered mental status, abdominal pain women, abdominal pain men, vaginal bleeding, weakness, fever, dyspnea, syncope, headache, dizziness, GI bleed, back pain, seizure, CVA, palpatations, mental health, musculoskeletal)? @ -Differential Musculoskeletal Muscular strain, contusion, ligament sprain, fracture, arthritis, septic arthritis, bursitis, cellulitis, muscle spasm, nerve compression, DVT, arterial occlusion, herpes zoster, electrolyte abnormality, tumor.... This is not meant to be in all inclusive list EKG interpreted by me (3pts min.). @ -None X-rays interpreted by me (1pt min.). @ -X-ray right knee reveals no acute process CT interpreted by me (1pt min.). @ -None done U/S interpreted by me (1pt. min.). @ -None done What testing was considered but not performed or refused? (CT, X-rays, U/S, labs)? Why? @ -None What meds were considered but not given or refused? Why? @ -None Did you discuss the management of the patient with other professionals (professionals i.e. , PA, PRACTICE ADMINISTRATOR, lab, RT, psych nurse, social media developer, rn wound, teacher, combat information center officer, sample case porter)? Give summary @ -No Was smoking cessation discussed for >3mins.? @ -No Was critical care preformed (if so, how long)? @ -No Were there social determinants of health that impacted care today? How? (Homelessness, low income, unemployed, alcoholism, drug addiction, transportation, low edu. Level, literacy, decrease access to med. care, correction, rehab)? @ -No Was there de-escalation of care discussed even if they declined (Discuss DNR or withdrawal of care, Hospice)? DNR status @ -No What co-morbidities impacted this encounter? (DM, HTN, Smoking, COPD, CAD, Cancer, CVA, ARF, Chemo, Hep., AIDS, mental health diagnosis, sleep apnea, morbid obesity)? @ -None Was patient admitted / discharged? Hospital course, mention meds given and route, prescriptions, significant lab abnormalities, going to OR and other pertinent info. @ -Discharge. This is a 29-year-old male presenting to the ER with chief complaint of right knee pain x 1 week. Denies known trauma or injury. He is able to weight-bear. Neurovascularly intact. Patient is provided with analgesics. X-ray right knee reveals no acute process. Results discussed with patient. Discussed diagnosis of right knee sprain. Supportive care/return precautions discussed. Advised orthopedic follow-up for for further imaging. Case was discussed with the ED attending Dr. Chawla. Patient discharged in stable condition. Undiagnosed new problem with uncertain prognosis? @ -No Drug Therapy requiring intensive monitoring for toxicity (Heparin, Nitro, Insulin, Cardizem)? @ -No Were any procedures done? @ -No Diagnosis/symptom? @ -Right knee sprain Acute, or Chronic, or Acute on Chronic? @ -Acute Uncomplicated (without systemic symptoms) or Complicated (systemic symptoms)? @ -Uncomplicated Side effects of treatment? @ -No Exacerbation, Progression, or Severe Exacerbation? @ -No Poses a threat to life or bodily function? How? (Chest pain, [place], [place], pneumonia, PE, COPD, DKA, ARF, appy, cholecystitis, CVA, Diverticulitis, Homicidal, Suicidal, threat to staff... and all critical care pts) @ -No Disposition Clinical Impression: Right knee sprain Disposition: HOME SELF-CARE Condition: Stable Instructions (If sedation given, give patient instructions): Knee Sprain (ED) Additional Instructions: Follow-up with Dr. Aguilar from [facility] next week. Please return to the Emergency Department if symptoms worsen or any other concerns. Is patient prescribed a controlled substance at d/c from ED?: No Referrals: None,Stated [Primary Care Provider] - 1-2 days Flako Aguilar MD [STAFF PHYSICIAN] - 1-2 days Time of Disposition: 23:30
[2024-07-02] MEDS: KETOROLAC 15 MG/ML 1 ML VIAL IM STA (22:49)
--- NOTE | 2024-07-02 23:03 | XR ---
EXAMINATION TYPE: XR knee complete RT DATE OF EXAM: 07/02/2024 CLINICAL HISTORY: Pain TECHNIQUE: Three views of the right knee are obtained. COMPARISON: Right knee x-ray February 14, 2019. FINDINGS: There is no acute fracture/dislocation evident in right knee. The tri-compartment joint s paces remain within normal limits. The overlying soft tissue appears unremarkable. IMPRESSION: No acute findings. [facility], , 07/02/2024 11:01 PM
[2024-07-03 00:12] VITALS: BP 99/65; PULSE 82
== END 2024-07-03 00:05 | disposition home or self-care (01) ==
LOC: EC 21:58
DX: S83.91XA Sprain of unspecified site of right knee, initial encounter (principal); F17.290 Nicotine dependence, other tobacco product, uncomplicated; Z91.048 Other nonmedicinal substance allergy status; X58.XXXA Exposure to other specified factors, initial encounter; Y93.01 Activity, walking, marching and hiking
CPT/HCPCS: 73562; 99283; 96372; J1885